=== PATIENT | female | born 1960 | race Caucasian/White ===

== ENCOUNTER 2017-03-09 14:40 | Emergency (ER) | payer SELFPAY ==
--- NOTE | 2017-03-09 16:52 | RAD ---
EXAM DESCRIPTION: Knee,Right 2 or More Views CLINICAL HISTORY: sharp pain, pressure with weight bearing COMPARISON: None. IMPRESSION: 2 views of the right knee show diffuse osteopenia of the osseous structures. No acute fracture, focal bone destruction, or joint dislocation is seen. Soft tissues are unremarkable. Electronically signed by: Alonzo Torres MD 03/09/2017 4:52 PM CDT
[2017-03-09] MEDS ORDERED: predniSONE 20 MG TAB PO ONE (17:17)
--- NOTE | 2017-03-09 17:20 | ED.PDOC ---
History of Present Illness - General Chief Complaint: Lower Extremity Injury Time Seen by Provider: 03/09/17 14:46 Source: patient Exam Limitations: no limitations - History of Present Illness Initial Comments: the patient is a 56-year-old female presenting to the emergency room secondary to right lateral anterior knee pain. The pain has been present for 3- 4 days. It is worse with walking. It is not bad with standing still. It is tender to palpation. There are no palpable cords behind the knee. The tenderness to palpation is over thehamstring to the outer aspect. There is mild swelling over the area. Range of motion is preserved. The patient is neurovascularly intact. Occurred: last week Pain - Lower Extremity: moderate: Right Knee Method of Injury: unknown Improving Factors: immobilization Worsening Factors: movement Allergies/Adverse Reactions: Allergies NO KNOWN ALLERGY Allergy (Verified 11/08/16 21:54) Home Medications: Ambulatory Orders Metoprolol Tartrate [Lopressor] 25 mg PO BID #60 tab 05/15/15 Nitrofurantoin Monohydrate Mac [Macrobid] 100 mg PO BID #10 cap 11/09/16 Potassium Chloride [Micro-K] 10 meq PO QAM #10 cap 11/09/16 predniSONE [Prednisone] 20 mg PO DAILY #3 tab 03/09/17 Review of Systems - Review of Systems Constitutional: States: no symptoms reported EENTM: States: no symptoms reported Respiratory: States: no symptoms reported Cardiology: States: no symptoms reported Gastrointestinal/Abdominal: States: no symptoms reported Genitourinary: States: no symptoms reported Musculoskeletal: States: see HPI Skin: States: no symptoms reported Neurological: States: no symptoms reported All other Systems: No Change from Baseline Past Medical History (General) - Patient Medical History Hx Seizures: No Hx Stroke: No Hx Dementia: No Hx Asthma: No Hx of COPD: No Hx Cardiac Disorders: No Hx Congestive Heart Failure: No Hx Pacemaker: No Hx Hypertension: Yes Hx Thyroid Disease: No Hx Diabetes: Yes Hx Gastroesophageal Reflux: No Hx Renal Disease: No Hx Cancer: No Hx of HIV: No Hx Hepatitis C: No Hx MRSA: No - Vaccination History Hx Tetanus, Diphtheria Vaccination: No Hx Influenza Vaccination: No Hx Pneumococcal Vaccination: No - Social History Hx Tobacco Use: Yes Hx Alcohol Use: Yes Hx Substance Use: Yes Hx Substance Use Treatment: Yes Hx Depression: No Hx Physical Abuse: No Hx Emotional Abuse: No Hx Suspected Abuse: No - Female History Patient : No Family Medical History - Family History Mother Living Status: Still Living Hx Cardiac Disease: Yes Physical Exam - Physical Exam General Appearance: Alert, Comfortable, No apparent distress Eyes, Ears, Nose, Throat: PERRL/EOMI Neck: full range of motion Cardiovascular/Respiratory: normal peripheral pulses, no respiratory distress Thigh/Hip: normal inspection, non-tender, no evidence of injury, normal ROM Leg: normal inspection, non-tender, no evidence of injury, normal ROM Knee: normal ROM, pain - ee history of present illness, swelling, other Ankle: normal inspection, non-tender, no evidence of injury, normal ROM Foot: normal inspection, non-tender, no evidence of injury, normal ROM Neuro/Tendon: normal sensation, normal motor functions, normal tendon functions Mental Status: alert, oriented x 3 Progress - Progress Progress: 03/09/17 17:20 the patient is a 56-year-old female presenting to the emergency room secondary to right lateral hamstring tendinitis. The patient needs to do stretches for the hamstring and light exercises as well. She can take oral over -the-counter anti-inflammatory such as Aleve. She can use topical heat such as icy hot or Biofreeze she can also use the Flector patches that she has. She will be written for 3 days of oral prednisone. ER warnings were given. X-ray shows no evidence of fracture or dislocation. Departure - Departure Clinical Impression: Hamstring strain Qualifiers: Encounter type: initial encounter Laterality: right Qualified Code(s): S76.311A - Strain of muscle, fascia and tendon of the posterior muscle group at thigh level, right thigh, initial encounter Disposition: Discharge to Home or Self Care Condition: Fair Departure Forms: ED Discharge - Pt. Copy, Patient Portal Self Enrollment Instructions: Tendonitis (Alternative Therapy), DI for Tendinopathy Diet: regular diet Activity: increase activity as tolerated Prescriptions: predniSONE [Prednisone] 20 mg PO DAILY #3 tab Home Medications: Ambulatory Orders Metoprolol Tartrate [Lopressor] 25 mg PO BID #60 tab 05/15/15 Nitrofurantoin Monohydrate Mac [Macrobid] 100 mg PO BID #10 cap 11/09/16 Potassium Chloride [Micro-K] 10 meq PO QAM #10 cap 11/09/16 predniSONE [Prednisone] 20 mg PO DAILY #3 tab 03/09/17 Additional Instructions: the patient is a 56-year-old female presenting to the emergency room secondary to right lateral hamstring tendinitis. The patient needs to do stretches for the hamstring and light exercises as well. She can take oral over -the-counter anti-inflammatory such as Aleve. She can use topical heat such as icy hot or Biofreeze she can also use the Flector patches that she has. She will be written for 3 days of oral prednisone. ER warnings were given. X-ray shows no evidence of fracture or dislocation.
[2017-03-10 08:20] VITALS: O2SAT 97
[2017-03-10 08:32] VITALS: TEMP 98
== END 2017-03-09 17:30 | disposition home or self-care (01) ==
LOC: ER 14:40
DX: S76.311A Strain of muscle, fascia and tendon of the posterior muscle group at thigh level, right thigh, initial encounter (principal); I10 Essential (primary) hypertension; E11.9 Type 2 diabetes mellitus without complications; Z87.891 Personal history of nicotine dependence; X58.XXXA Exposure to other specified factors, initial encounter

== ENCOUNTER → 2017-05-03 | Outpatient (CLI) | payer SELFPAY ==
--- NOTE | 2017-05-04 14:31 | RAD ---
EXAM DESCRIPTION: Abdomen 1 View CLINICAL HISTORY: 56 years Female, KIDNEY STONE. R10.821 COMPARISON: None. FINDINGS: Is a moderate amount of colonic stool and gas without evidence of obstruction. No left or right-sided renal calculus is seen. There are a few tiny calcifications in the left side of the pelvis which could represent either phleboliths or distal left ureteral calculus. Postoperative changes are noted in the left upper quadrant. IMPRESSION: Left-sided phleboliths versus distal left ureteral calculus. If clinically suspicious, noncontrast CT is recommended. Electronically signed by: Erwin Chao MD 05/04/2017 2:31 PM CDT Workstation: [id number]
== END | disposition home or self-care (01) ==
LOC: RAD 16:30
PROVIDERS: ATTEND Nurse Practitioner Family
DX: R10.829 Rebound abdominal tenderness, unspecified site (principal)

== ENCOUNTER 2017-12-18 10:51 | Emergency (ER) | payer SELFPAY ==
[2017-12-18 11:02] VITALS: TEMP 98.2
--- NOTE | 2017-12-18 11:16 | ED.PDOC ---
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 Timing/Duration: 1-3 hours Severity: moderate Activities at Onset: rest Prior Chest Pain/Cardiac Workup: no prior chest pain Improving Factors: nothing Worsening Factors: nothing Nitro Today/Relief: 0.4 mg x 1, provided by ED Aspirin Treatment Today: 81 mg x 4 Associated Symptoms: shortness of breath Allergies/Adverse Reactions: Allergies NO KNOWN ALLERGY Allergy (Verified 12/18/17 11:02) Home Medications: Ambulatory Orders Escitalopram Oxalate [Lexapro] 20 mg PO DAILY 12/18/17 Review of Systems - Review of Systems Constitutional: States: no symptoms reported EENTM: States: no symptoms reported Respiratory: States: see HPI, short of breath Cardiology: States: see HPI, other - chest heaviness Gastrointestinal/Abdominal: States: no symptoms reported Genitourinary: States: no symptoms reported Musculoskeletal: States: no symptoms reported Skin: States: no symptoms reported Neurological: States: no symptoms reported Endocrine: States: no symptoms reported All other Systems: Reviewed and Negative, No Change from Baseline Past Medical History (General) - Patient Medical History Hx Seizures: No Hx Stroke: No Hx Dementia: No Hx Asthma: No Hx of COPD: No Hx Cardiac Disorders: No Hx Congestive Heart Failure: No Hx Pacemaker: No Hx Hypertension: Yes Hx Thyroid Disease: No Hx Diabetes: No Hx Gastroesophageal Reflux: No Hx Renal Disease: No Hx Cancer: No Hx of HIV: No Hx Hepatitis C: No Hx MRSA: No Surgical History: cholecystectomy, gastric bypass, tonsillectomy - Vaccination History Hx Tetanus, Diphtheria Vaccination: No Hx Influenza Vaccination: No Hx Pneumococcal Vaccination: No - Social History Hx Tobacco Use: Yes Hx Alcohol Use: Yes Hx Substance Use: Yes Hx Substance Use Treatment: Yes Hx Depression: No Hx Physical Abuse: No Hx Emotional Abuse: No Hx Suspected Abuse: No - Female History Patient : No Family Medical History - Family History Mother Living Status: Still Living Hx Cardiac Disease: Yes Hx Family Cancer: Yes - mesothelioma-dad Physical Exam - Physical Exam General Appearance: Alert, Anxious, Comfortable, No apparent distress Eyes, Ears, Nose, Throat Exam: PERRL/EOMI, normal ENT inspection, TMs normal Neck: non-tender, full range of motion, supple Respiratory: chest non-tender, lungs clear, normal breath sounds Cardiovascular/Chest: normal peripheral pulses, regular rate, rhythm, no murmur Peripheral Pulses: radial,right: 2+, radial,left: 2+ Gastrointestinal/Abdominal: normal bowel sounds, non tender, soft, no organomegaly Neurologic: alert, oriented x 3 Skin Exam: normal color, warm/dry Progress - Progress Progress: 12/18/17 11:27 Last Vital Signs Temp 98.2 F 12/18/17 10:58 Pulse 118 H 12/18/17 10:58 Resp 28 H 12/18/17 10:58 BP 171/149 12/18/17 10:58 Pulse Ox 97 12/18/17 10:58 - Results/Orders Results/Orders: Laboratory Tests 12/18/17 12/18/17 12/18/17 11:18 11:23 11:23 WBC 15.6 H RBC 5.54 H Hgb 17.0 H Hct 51.5 H MCV 92.9 MCH 30.6 MCHC 33.0 RDW 14.1 Plt Count 358 MPV 7.7 Absolute Neuts (auto) 11.00 H Absolute Lymphs (auto) 3.20 Absolute Monos (auto) 1.20 H Absolute Eos (auto) 0.00 Absolute Basos (auto) 0.10 Neutrophils % 70.5 Lymphocytes % 20.5 Monocytes % 7.9 Eosinophils % 0.2 L Basophils % 0.9 PT 11.4 INR 1.010 PTT (SP) 31.7 D-Dimer, Quantitative < 200 Sodium 134 L Potassium 4.1 Chloride 99 L Carbon Dioxide 12 L* Anion Gap 27.1 H BUN 15 Creatinine 0.82 BUN/Creatinine Ratio 18.3 Random Glucose 130 H Serum Osmolality 270.8 L Calcium 9.5 Magnesium 2.0 Total Bilirubin 0.9 Direct Bilirubin 0.2 Indirect Bilirubin 0.7 AST 32 ALT 30 Alkaline Phosphatase 88 Creatine Kinase 151 H CK-MB (CK-2) 6.2 H* CK-MB (CK-2) % 4.11 Troponin I < 0.02 B-Natriuretic Peptide 15.4 Serum Total Protein 8.6 H Albumin 5.0 Urine Color Urine Appearance Urine pH Ur Specific Stanton Urine Protein Urine Glucose (UA) Urine Ketones Urine Blood Urine Nitrite Urine Bilirubin Urine Urobilinogen Ur Leukocyte Esterase Urine RBC Urine WBC Ur Epithelial Cells Urine Bacteria Urine Opiates Screen Negative Urine Barbiturates Negative Ur Phencyclidine Scrn Negative U Amphetamin/Meth Scrn Negative U Benzodiazepines Scrn Negative U Cocaine Metab Screen Negative U Cannabinoids Screen Negative Ethyl Alcohol 12/18/17 12/18/17 11:23 11:54 WBC RBC Hgb Hct MCV MCH MCHC RDW Plt Count MPV Absolute Neuts (auto) Absolute Lymphs (auto) Absolute Monos (auto) Absolute Eos (auto) Absolute Basos (auto) Neutrophils % Lymphocytes % Monocytes % Eosinophils % Basophils % PT INR PTT (SP) D-Dimer, Quantitative Sodium Potassium Chloride Carbon Dioxide Anion Gap BUN Creatinine BUN/Creatinine Ratio Random Glucose Serum Osmolality Calcium Magnesium Total Bilirubin Direct Bilirubin Indirect Bilirubin AST ALT Alkaline Phosphatase Creatine Kinase CK-MB (CK-2) CK-MB (CK-2) % Troponin I B-Natriuretic Peptide Serum Total Protein Albumin Urine Color Yellow Urine Appearance Clear Urine pH 5.5 Ur Specific Stanton >= 1.030 Urine Protein 100 H Urine Glucose (UA) Negative Urine Ketones >=160 Urine Blood Small H Urine Nitrite Negative Urine Bilirubin Negative Urine Urobilinogen 0.2 Ur Leukocyte Esterase Negative Urine RBC 0 Urine WBC 0-1 Ur Epithelial Cells 3-5 Urine Bacteria Rare Urine Opiates Screen Urine Barbiturates Ur Phencyclidine Scrn U Amphetamin/Meth Scrn U Benzodiazepines Scrn U Cocaine Metab Screen U Cannabinoids Screen Ethyl Alcohol 40.40 - EKG/XRAY/CT EKG: Sinus, Tachy Comments: heart rate-114;biatrial enlargement Departure - Departure Clinical Impression: Chest pain Qualifiers: Chest pain type: unspecified Qualified Code(s): R07.9 - Chest pain, unspecified Time of Disposition: 13:32 Disposition: Left Against Medical Advice Departure Forms: ED Discharge - Pt. Copy, Patient Portal Self Enrollment Instructions: DI for Chest Pain Referrals: Vickie Brooks NP [Primary Care Provider] - 1-2 Weeks Home Medications: Ambulatory Orders Escitalopram Oxalate [Lexapro] 20 mg PO DAILY 12/18/17
[2017-12-18] MEDS ORDERED: ASPIRIN (CHEWABLE) 81 MG TAB PO ONE (11:18)
[2017-12-18] MEDS ORDERED: NITROGLYCERIN 0.4 MG 25 EA TAB SL ONE (11:18)
--- NOTE | 2017-12-18 12:38 | RAD ---
EXAM DESCRIPTION: Chest,1 View CLINICAL HISTORY: Chest pain COMPARISON: November 08, 2016 Findings: Single upright portable frontal view of the chest. Cardiac silhouette and pulmonary vascularity are within normal limits. Calcific atherosclerosis noted of the aortic arch. Lungs are clear without focal consolidative infiltrates. Bilateral costophrenic angles are sharp. No pneumothorax. Dextrocurvature of the thoracic spine, stable. Impression: No radiographic evidence for acute cardiopulmonary process. Electronically signed by: Santhosh Ferrell MD 12/18/2017 12:37 PM [facility]
[2017-12-18] MEDS ORDERED: LABETALOL INJ 5 MG/ML VIAL IV ONE (13:14)
[2017-12-18 13:41] VITALS: BP 182/114; O2SAT 96
== END 2017-12-18 13:33 | disposition left against medical advice (07) ==
LOC: ER 10:51
DX: R07.9 Chest pain, unspecified (principal); I10 Essential (primary) hypertension; I51.7 Cardiomegaly

== ENCOUNTER 2017-12-18 15:27 | Emergency (ER) | payer SELFPAY ==
[2017-12-18 16:03] VITALS: TEMP 98.3
--- NOTE | 2017-12-18 16:52 | ED.PDOC ---
History of Present Illness - General Chief Complaint: Cardiovascular Problem Stated Complaint: Elevated BP and headache Time Seen by Provider: 12/18/17 16:27 Source: patient Exam Limitations: no limitations - History of Present Illness Initial Comments: Lisa Jimenez 57 y/o female was seen here initially this am for SOB and irri tability with etoh -level:40.40 came brought back by mom with increasing irritability and high blood pressure.Stated had been heavily drinking since this weekend and last drink was yesterday.Admits daily alcoholic use the last 3 years.Had been in ETOH detox and AA meetings in the past. Timing/Duration: 4-6 hours Severity: moderate Improving Factors: nothing Worsening Factors: nothing Associated Symptoms: other - shaky Allergies/Adverse Reactions: Allergies NO KNOWN ALLERGY Allergy (Verified 12/18/17 16:03) Home Medications: Ambulatory Orders Clonidine HCl 0.1 mg TD DAILY #30 tablet 12/18/17 Escitalopram Oxalate [Lexapro] 20 mg PO DAILY 12/18/17 Folate-Vitamin F49-Zapvayowa F [Intrinsi B12/Folate 800-500-20 Mcg-Mcg-mg] 1 tab PO DAILY #30 tab 12/18/17 Thiamine HCl [Thiamine] 100 mg PO DAILY #30 cap 12/18/17 Review of Systems - Review of Systems Constitutional: States: no symptoms reported EENTM: States: no symptoms reported Respiratory: States: no symptoms reported Cardiology: States: no symptoms reported Gastrointestinal/Abdominal: States: no symptoms reported Genitourinary: States: no symptoms reported Musculoskeletal: States: no symptoms reported Skin: States: no symptoms reported Neurological: States: see HPI, emotional problems Past Medical History (General) - Patient Medical History Hx Seizures: No Hx Stroke: No Hx Dementia: No Hx Asthma: No Hx of COPD: No Hx Cardiac Disorders: No Hx Congestive Heart Failure: No Hx Pacemaker: No Hx Hypertension: Yes Hx Thyroid Disease: No Hx Diabetes: No Hx Gastroesophageal Reflux: No Hx Renal Disease: No Hx Cancer: No Hx of HIV: No Hx Hepatitis C: No Hx MRSA: No Hx Other PMH: Yes - alcoholism and depression Surgical History: gastric bypass, other - hysterectomy - Vaccination History Hx Tetanus, Diphtheria Vaccination: No Hx Influenza Vaccination: No Hx Pneumococcal Vaccination: No - Social History Hx Tobacco Use: Yes Hx Alcohol Use: Yes Hx Substance Use: Yes Hx Substance Use Treatment: Yes Hx Depression: No Hx Physical Abuse: No Hx Emotional Abuse: No Hx Suspected Abuse: No - Female History Patient : No Family Medical History - Family History Mother Living Status: Still Living Hx Cardiac Disease: Yes Hx Family Cancer: Yes - mesothelioma-dad Physical Exam - Physical Exam General Appearance: Alert, Anxious, No apparent distress Eye Exam: bilateral normal Ears, Nose, Throat: hearing grossly normal, normal ENT inspection, normal pharynx Neck: non-tender, full range of motion, supple Respiratory: chest non-tender, lungs clear, normal breath sounds Cardiovascular/Chest: normal peripheral pulses, regular rate, rhythm, no murmur Peripheral Pulses: radial,right: 2+, radial,left: 2+ Gastrointestinal/Abdominal: normal bowel sounds, non tender, soft, no organomegaly Extremity: normal range of motion, non-tender Neurologic: alert, normal mood/affect, oriented x 3 Progress - Progress Progress: 12/18/17 17:06 Drug screen-negative;cardiac enzymes -normal ;[id number] but no left shift ETOH- 40.40 12/18/17 20:14 Patient will go home with her mother;Has regular [facility] follow up - EKG/XRAY/CT EKG: Sinus, Tachy Comments: heart rate 114-done this am;biatrial enlargement Departure - Departure Clinical Impression: History of depression Alcohol withdrawal Qualifiers: Complication of substance-induced condition: with unspecified complication Qualified Code(s): F10.239 - Alcohol dependence with withdrawal, unspecified Hypertension Qualifiers: Hypertension type: other secondary hypertension Qualified Code(s): I15.8 - Other secondary hypertension Alcoholism with alcohol dependence Qualifiers: Substance use status: alcohol-induced sleep disorder Qualified Code(s): F10.282 - Alcohol dependence with alcohol-induced sleep disorder Time of Disposition: 20:14 Disposition: Discharge to Home or Self Care Condition: Fair Departure Forms: ED Discharge - Pt. Copy, Patient Portal Self Enrollment Instructions: DI for Alcohol Abuse and Alcoholism, Alcohol Abuse and Alcoholism , Alcoholism (Alternative Therapy) Referrals: Vickie Brooks NP [Primary Care Provider] - 1-2 Weeks Prescriptions: Clonidine HCl 0.1 mg TD DAILY #30 tablet Folate-Vitamin N15-Kzldqtcew F [Intrinsi B12/Folate 800-500-20 Mcg-Mcg-mg] 1 tab PO DAILY #30 tab Thiamine HCl [Thiamine] 100 mg PO DAILY #30 cap Home Medications: Ambulatory Orders Clonidine HCl 0.1 mg TD DAILY #30 tablet 12/18/17 Escitalopram Oxalate [Lexapro] 20 mg PO DAILY 12/18/17 Folate-Vitamin W11-Ebnvfizbv F [Intrinsi B12/Folate 800-500-20 Mcg-Mcg-mg] 1 tab PO DAILY #30 tab 12/18/17 Thiamine HCl [Thiamine] 100 mg PO DAILY #30 cap 12/18/17 Additional Instructions: Librium 25 mg tapering dose;Follow up with primary Md 12/19 2017
[2017-12-18] MEDS ORDERED: MULTIPLE VITAMIN INJ 10 ML in SODIUM CHLORIDE 0.9% 1000ML 1,000 ML IVPB ONE (16:54)
[2017-12-18] MEDS ORDERED: MULTIPLE VITAMIN INJ 10 ML, THIAMINE HCL INJ 100 MG in SODIUM CHLORIDE 0.9% 1000ML 1,00... IVPB ONE (16:56)
[2017-12-18] MEDS ORDERED: chlordiazePOXIDE HCL 25 MG CAP PO ONE (16:57)
[2017-12-18] MEDS ORDERED: cloNIDine HCL 0.1 MG TAB PO ONE (16:57)
[2017-12-18] MEDS ORDERED: MAGNESIUM SULFATE PREMIX 2GM 2 GM in PREMIX BAG 1 BAG IVPB ONE (16:58)
[2017-12-18] MEDS ORDERED: FOLIC ACID 1 MG TAB PO SCH (17:00)
[2017-12-18] MEDS ORDERED: MAGNESIUM SULFATE PREMIX 2GM 0 ML IVPB ONE (17:16)
[2017-12-18] MEDS ORDERED: SODIUM CHLORIDE 0.9% 1000ML 1,000 ML ONE (17:16)
[2017-12-18] MEDS ORDERED: MULTIPLE VITAMIN 10 ML VIAL ONE (17:17)
[2017-12-18] MEDS ORDERED: THIAMINE HCL INJ 100 MG/ML VIAL ONE (17:32)
[2017-12-18 17:46] VITALS: O2SAT 95
[2017-12-18 21:25] VITALS: BP 143/54
== END 2017-12-18 21:10 | disposition home or self-care (01) ==
LOC: ER 15:27
DX: F10.282 Alcohol dependence with alcohol-induced sleep disorder (principal); F10.239 Alcohol dependence with withdrawal, unspecified; I15.8 Other secondary hypertension
CPT/HCPCS: J3411; J7030

== ENCOUNTER → 2018-02-21 | Outpatient (CLI) | payer OTHER | LOC: YCFC.O 12:35 | DX: I10 Essential (primary) hypertension (principal) ==

== ENCOUNTER 2018-04-29 14:13 | Emergency (ER) | payer SELFPAY ==
[2018-04-29 14:33] VITALS: TEMP 99.1
--- NOTE | 2018-04-29 15:30 | RAD ---
EXAM DESCRIPTION: Chest,1 View CLINICAL HISTORY: SYNCOPE COMPARISON: December 18, 2017 IMPRESSION: Single AP portable upright view of the chest shows cardiac silhouette and pulmonary vasculature to be within normal limits. Lungs are normally aerated and clear. No obvious pleural effusion or pneumothorax is seen. Moderate dextrocurvature of the lower thoracic spine is seen. Electronically signed by: Alonzo Torres MD 04/29/2018 3:29 PM CDT
--- NOTE | 2018-04-29 15:33 | CT ---
EXAM DESCRIPTION: Head CLINICAL HISTORY: SYNCOPE COMPARISON: November 08, 2016 TECHNIQUE: Noncontrast transaxial CT images of the head are obtained from base to vertex. This exam was performed according to our departmental dose-optimization program, which includes automated exposure control, adjustment of the mA and/or kV according to patient size and/or use of iterative reconstruction technique. FINDINGS: The midline structures are not displaced. The sulci are age appropriate. The lateral, third, and fourth ventricles are normal in size, shape, and anatomic positioning. There is no evidence of mass, mass effect, hydrocephalus, or acute intracranial hemorrhage. No abnormal extra axial fluid collections are seen. Normal pereira-white differentiation is seen. The visualized bone windows show no depressed skull fracture or significant abnormality. There is a moderate right frontal scalp soft tissue hematoma showing increased attenuation measuring 1.4 cm AP by 4.3 cm transverse. The visualized paranasal sinuses and mastoid air cells are clear. IMPRESSION: 1. No acute cranial abnormality is seen on noncontrast CT of the head. 2. Large right frontal scalp soft tissue hematoma is a supraorbital region is seen. Electronically signed by: Alonzo Torres MD 04/29/2018 3:32 PM CDT
--- NOTE | 2018-04-29 15:36 | CT ---
EXAM DESCRIPTION: Cervical Spine CLINICAL HISTORY: SYNCOPE COMPARISON: None available. TECHNIQUE: Axial noncontast CT of the cervical spine with coronal and sagittal reformats. This exam was performed according to our departmental dose-optimization program, which includes automated exposure control, adjustment of the mA and/or kV according to patient size and/or use of iterative reconstruction technique. FINDINGS: Cervical vertebral body heights are maintained. There is straightening of the normal cervical lordosis. No acute fracture or posttraumatic positional abnormality of the cervical spine is seen. No high-grade spinal canal stenosis or significant foraminal encroachment is seen. Soft tissues of the neck are unremarkable. There is medial positioning of the common and internal carotid arteries with mild calcifications of the left common carotid artery and moderate calcifications of the bilateral carotid bulb. No pathologically enlarged lymphadenopathy seen. Visualized lung apices show moderate emphysematous changes The C1-2 relationship is maintained. IMPRESSION: No CT evidence of acute fracture or posterior neck positional abnormality of the cervical spine is seen. Nonspecific straightening of the normal cervical lordosis could be secondary to patient positioning or muscle spasm. Mild/moderate carotid artery calcifications are seen asymmetric on the right. Electronically signed by: Alonzo Torres MD 04/29/2018 3:35 PM CDT
--- NOTE | 2018-04-29 16:15 | ED.PDOC ---
History of Present Illness - General Chief Complaint: Syncope/Near Syncope Stated Complaint: syncope Time Seen by Provider: 04/29/18 14:47 Source: patient, family Exam Limitations: no limitations Additional Information: PT WAS SHOPPING WITH HER MOM WHEN SHE FOUND HER LAYING IN THE FLOOR AT THE [facility]OPPING CENTER. PT WAS UNCONSCIOUS AT THAT TIME. PT HAS HX OF ETOH ABUSE AND WAS DRINKING HEAVILY 5 DAYS AGO. SPENT SOME TIME IN [facility] AND ACCORDING TO PT AND MOM SHE HAS NOT BEEN DRINKING SINCE. PT DOES STATE SHE LOST HER JOB AND HAS BEEN DRINKING MOUTHWASH. - History of Present Illness Timing/Duration: unsure Severity: moderate Improving Factors: nothing, other - PT IMPROVED BY THE TIME SHE ARRIVED AT ED. Worsening Factors: nothing Associated Symptoms: other - FELT DIZZY JUST PRIOR. Allergies/Adverse Reactions: Allergies NO KNOWN ALLERGY Allergy (Verified 04/29/18 14:33) Home Medications: Ambulatory Orders Clonidine HCl 0.1 mg TD DAILY #30 tablet 12/18/17 Escitalopram Oxalate [Lexapro] 20 mg PO DAILY 12/18/17 Folate-Vitamin [id number] F [Intrinsi B12/Folate 800-500-20 Mcg-Mcg-mg] 1 tab PO DAILY #30 tab 12/18/17 Thiamine HCl [Thiamine] 100 mg PO DAILY #30 cap 12/18/17 Doxycycline (Monohydrate) [Doxycycline Monohydrate] 100 mg PO BID #20 cap Review of Systems - Review of Systems Constitutional: Denies: chills, fever EENTM: States: no symptoms reported Respiratory: States: no symptoms reported Cardiology: States: no symptoms reported Gastrointestinal/Abdominal: States: no symptoms reported Genitourinary: States: no symptoms reported, other - NO INCONTINENCE. Musculoskeletal: States: no symptoms reported Skin: States: other - SWELLING AND ECCHYMOSIS Neurological: States: headache. Denies: numbness, seizure, weakness Endocrine: States: no symptoms reported Hematologic/Lymphatic: States: no symptoms reported Past Medical History (General) - Patient Medical History Hx Seizures: No Hx Stroke: No Hx Dementia: No Hx Asthma: No Hx of COPD: No Hx Cardiac Disorders: No Hx Congestive Heart Failure: No Hx Pacemaker: No Hx Hypertension: Yes Hx Thyroid Disease: No Hx Diabetes: No Hx Gastroesophageal Reflux: No Hx Renal Disease: No Hx Cancer: No Hx of HIV: No Hx Hepatitis C: No Hx MRSA: No Surgical History: tonsillectomy, other - Vaccination History Hx Tetanus, Diphtheria Vaccination: No Hx Influenza Vaccination: No Hx Pneumococcal Vaccination: No - Social History Hx Tobacco Use: Yes Hx Alcohol Use: Yes Hx Substance Use: Yes Hx Substance Use Treatment: Yes Hx Depression: No Hx Physical Abuse: No Hx Emotional Abuse: No Hx Suspected Abuse: No - Female History Patient : No Family Medical History - Family History Mother Living Status: Still Living Hx Cardiac Disease: Yes Hx Family Cancer: Yes - mesothelioma-dad Physical Exam - Physical Exam General Appearance: No apparent distress, Obese, Other - APPEARS INTOXICATED Eye Exam: bilateral normal Ears, Nose, Throat: hearing grossly normal, normal ENT inspection, other - HEMATOMA OVER R LAT SUP PERIORBITAL RIDGE. EYE IS NL, PUPIL NL, CORNEA CLEAR, Neck: non-tender, full range of motion, normal inspection Respiratory: lungs clear, normal breath sounds, no respiratory distress Cardiovascular/Chest: regular rate, rhythm, no murmur Gastrointestinal/Abdominal: normal bowel sounds, non tender, soft, no organomegaly Back Exam: normal inspection, no CVA tenderness Extremity: normal range of motion, non-tender, normal inspection Neurologic: no motor/sensory deficits, alert, normal mood/affect, other - SMELLS OF MOUTHWASH AND ACTS INTOXICATED Skin Exam: normal color, warm/dry, other - SWELLING AND ECCHYMOSIS PREVIOUSLY NOTED. Lymphatic: no adenopathy Progress - Progress Progress: 04/29/18 16:41 FEELS BETTER. - EKG/XRAY/CT EKG: Sinus - RATE 84, NL AXIS, NL INTERVALS, , nonspecific ST T wave Chg - NAIP , , Unchanged from - 12/18/2017 XRAY: chest - SMALL LL INFILTRATE CT: HEAD/CSPINE NEG PER RADIOLOGY Departure - Departure Clinical Impression: Chronic alcohol abuse, Hypokalemia, Dehydration Pneumonia Qualifiers: Pneumonia type: due to unspecified organism Laterality: left Lung location: lower lobe of lung Qualified Code(s): J18.1 - Lobar pneumonia, unspecified organism Time of Disposition: 16:45 Disposition: Discharge to Home or Self Care Condition: Good Departure Forms: ED Discharge - Pt. Copy, Patient Portal Self Enrollment Instructions: Pneumonia-Adult, Alcohol Abuse and Alcoholism Referrals: Vickie Brooks NP [Primary Care Provider] - 1-2 Weeks Prescriptions: Doxycycline (Monohydrate) [Doxycycline Monohydrate] 100 mg PO BID #20 cap Home Medications: Ambulatory Orders Clonidine HCl 0.1 mg TD DAILY #30 tablet 12/18/17 Escitalopram Oxalate [Lexapro] 20 mg PO DAILY 12/18/17 Folate-Vitamin R72-[id number] F [Intrinsi B12/Folate 800-500-20 Mcg-Mcg-mg] 1 tab PO DAILY #30 tab 12/18/17 Thiamine HCl [Thiamine] 100 mg PO DAILY #30 cap 12/18/17 Doxycycline (Monohydrate) [Doxycycline Monohydrate] 100 mg PO BID #20 cap 18
[2018-04-29] MEDS ORDERED: SODIUM CHLORIDE 0.9% 1000ML 2,000 ML IVS ONE (16:29)
[2018-04-29] MEDS ORDERED: cefTRIAXone SODIUM 1 GM in SODIUM CHL 0.9% 50ML MIN-BAG+ 50 ML IVPB ONE (16:42)
[2018-04-29] MEDS ORDERED: cefTRIAXone SODIUM 1 GM VIAL ONE (16:48)
[2018-04-29] MEDS ORDERED: SODIUM CHL 0.9% 50ML MIN-BAG+ 50 ML IVPB ONE (16:49)
[2018-04-29] MEDS ORDERED: POTASSIUM CHLORIDE 20 MEQ TAB PO ONE (17:00)
[2018-04-29 18:18] VITALS: BP 113/54; O2SAT 96
== END 2018-04-29 18:17 | disposition home or self-care (01) ==
LOC: ER 14:13
DX: J18.1 Lobar pneumonia, unspecified organism (principal); E86.0 Dehydration; E87.6 Hypokalemia; F10.10 Alcohol abuse, uncomplicated; R51 Headache; R55 Syncope and collapse; I10 Essential (primary) hypertension; Z87.891 Personal history of nicotine dependence
CPT/HCPCS: 70450; 71045; 72125; 80053; 80307; 80320; 81001; 85025; 85610; 85730; 93005; J0696; J7030; J7050

== ENCOUNTER → 2018-08-21 | Outpatient (CLI) | payer SELFPAY ==
--- NOTE | 2018-08-22 15:37 | CT ---
EXAM DESCRIPTION: Maxillofacial w/wo Contrast CLINICAL HISTORY: 57 years Female, HEMORRHAGE OF UNSPECIFIED ORBIT COMPARISON: None. TECHNIQUE: Pre and postcontrast multidetector CT imaging of the maxillofacial structures was performed with attention to the orbits. Multiplanar reconstructions were generated. This exam was performed according to our departmental dose-optimization program which includes automated exposure control, adjustment of the mA and/or kV according to patient size and/or use of iterative reconstruction technique. FINDINGS: Mild cutaneous and subcutaneous stranding is seen in around the superficial orbital structures and more apparent on the right. No post septal inflammation is present. The bilateral globes are symmetric. Intraconal and extraconal spaces are normal. The orbital musculature is intact. The bilateral optic nerves are normal in appearance. No drainable fluid collections are demonstrated within the face. No paraspinous air-fluid levels or sinus fractures. Bilateral temporomandibular joints are maintained. Poor dentition is noted. Visualized intracranial structures are grossly unremarkable. No abnormal postcontrast enhancement is demonstrated throughout the maxillofacial structures. IMPRESSION: Unremarkable CT of the orbits. Electronically signed by: John Alcala MD 08/22/2018 3:35 PM CDT
== END ==
LOC: LAB.O 16:23
PROVIDERS: ATTEND Family Medicine
DX: H05.239 Hemorrhage of unspecified orbit (principal); M54.9 Dorsalgia, unspecified; I10 Essential (primary) hypertension

== ENCOUNTER → 2018-08-23 | Outpatient (CLI) | payer SELFPAY ==
--- NOTE | 2018-08-23 17:54 | MRI ---
EXAM DESCRIPTION: Thoracic Spine w/o Contrast: Magnetic Resonance Imaging. CLINICAL HISTORY: CHRONIC BACK PAIN COMPARISON: CT scan of the cervical spine 04/29/2018. TECHNIQUE: Multiplanar, multiple standard sequences, non contrast MRI, thoracic spine. FINDINGS: Anterior compression type vertebral body fracture at T6. Inversion recovery shows increased signal in the marrow of the mid and posterior aspect of the fracture which is also extending into the bilateral pedicles. Anterior height of the T6 vertebral body is 4.5 mm compared to 1.5 cm at T5. This indicates approximately 70% loss of height. Approximately 2 mm retropulsion of the mid vertebral body which is abutting the ventral cord. No cord edema or compression. Paravertebral soft tissue mass anteriorly and more to the right than left. C5-6 disc and C6-7 disc are unremarkable. No significant foraminal stenosis at either level. Minimal disc space loss at T8-9 and T9-10 and minimal desiccation signal. There may be minimal desiccation in the C5-6 and C6-7 discs. No cord compression at other levels. Remaining discs demonstrate normal signal. Disc spaces are preserved. Canal and foramina are patent. No scoliosis. Facet joints are unremarkable. Conus terminates at L1. Other paravertebral soft tissues are unremarkable. Normal marrow signal in the remaining vertebral bodies and the posterior elements. Vertebral bodies are not compressed at other levels. IMPRESSION: 1. Subacute compression type vertebral body fracture of C6 with approximately 70% loss of height anterior. Marrow edema extends into the bilateral C6 pedicles but posterior elements are stable. Minimal paravertebral hematoma/soft tissue swelling. 2 mm retropulsion of the mid posterior vertebral body abutting the ventral cord. No cord edema or cord compression. No canal stenosis. Discs superior and inferior are unremarkable and foramina are patent bilaterally 2. Minimal desiccation at T8-9 and T9-T10 discs. Also C5-6 and C6-7 discs.. Electronically signed by: Anatoliy Ponce MD 08/23/2018 5:53 PM CDT
== END ==
LOC: MRI 13:00
PROVIDERS: ATTEND Family Medicine
DX: M48.52XA Collapsed vertebra, not elsewhere classified, cervical region, initial encounter for fracture (principal)

== ENCOUNTER → 2018-09-13 | Outpatient (CLI) | payer SELFPAY ==
--- NOTE | 2018-09-14 13:24 | CT ---
Procedure: CT LUNG SCREENING Exam Date: 09/13/2018. Ordering Provider: Galdino Kaiser Clinical Indication: HISTORY OF NICOTINE DEPENDENCE. Quit smoking 10 days ago. This patient meets eligibility criteria for low-dose CT lung cancer screening. Comparison: None. Technique: Using a multislice scanner, sequential helical axial imaging was obtained in the thorax, 2.5 mm thickness, 2.5 mm separation, from the level of the thoracic inlet through the lung bases without IV contrast. A low dose protocol was utilized: CTDI: 1.75 mGy. 120. kVp. 45 mA. 2D sagittal and coronal reconstructed images, 6.0 mm thickness, were obtained. This exam was performed according to our departmental dose optimization program which includes use of automated exposure control, adjustment of the mA and/or kV according to patient size and/or use of iterative reconstruction technique. Nodule measurements under 10 mm are given as mean value of 3 axes diameters. FINDINGS: Lungs and large airways: Bilateral upper lobes demonstrating dilating airspaces symmetrically. 4 mm solid nodule in the subpleural inferior lingula on axial sequence 2, image 75. Scarring in the inferior lingula. Bibasilar atelectasis in the posterior recesses of the lower lobes bilaterally. No abnormal nodules masses or consolidating infiltrates. Pleura: No significant pleural thickening or effusion. No pneumothorax. Mediastinum and magy: evaluation limited by low dose technique and lack of IV contrast. Nodular density anterior to the ascending aorta almost to the level of the arch. No large soft tissue mass or significantly enlarged lymph nodes. Heart and great vessels: Atherosclerotic calcification in the proximal brachiocephalic vessels aortic arch and minimal calcification in the descending thoracic aorta. Multiple calcifications in the coronary arteries. Possible stents in the right coronary artery. Chest wall, lower neck, axillae: Evaluation also limited by same factors as described above. No dominant soft tissue masses or enlarged lymph nodes. Upper abdomen: No free air or fluid in the included peritoneal. Prior gastric surgery. Included adrenal glands and spleen with normal echogenicity. Atherosclerotic calcifications in the included abdomen aorta. Osseous structures: Evaluation limited by low dose MIP technique. Greater than 50% compression of the mid T6 vertebral body. Minimal retropulsion superior endplate and posterior superior body. No significant canal or foraminal stenosis. Significant foraminal narrowing on the left at T9. Facet degeneration at some levels. No blastic or lytic lesions. IMPRESSION: 1. Minimal emphysematous changes in the lungs bilaterally. 4 mm solid nodule left lingula. No pleural effusion or pneumothorax. No abnormal solid nodule consolidating infiltrate, or mass.. Recommendation of 12 month low-dose screening chest CT examination, based upon [facility] Best Practice guidelines and Lung Rads parameters. Please see below for Lung RADS category and FOLLOW-UP.* 2. Greater than 50% compression type vertebral body fracture at T6. Please correlate with prior radiographs and clinical history. *Lung RADS category Category 2 - Nodules with a very low likelihood (less than 1%) of becoming a clinically active cancer due to size or lack of growth. Nodules: Solid or part solid nodule(s) less than 6mm, new solid nodule less than 4mm. Ground glass nodule(s) less than 20mm or unchanged or slow growing ground glass nodule 20mm or greater. Cat 3 or 4 nodule unchanged for 3 or more months. Follow-up: Continue annual screening with a Low Dose Chest CT in 12 months for re-evaluation. Electronically signed by: Anatoliy Ponce MD 09/14/2018 1:23 PM CDT
== END ==
LOC: CT 13:30
PROVIDERS: ATTEND Family Medicine
DX: Z87.891 Personal history of nicotine dependence (principal)

== ENCOUNTER → 2019-10-15 | Outpatient (CLI) | payer OTHER ==
--- NOTE | 2019-10-16 15:34 | CT ---
Procedure: CT LUNG SCREENING Exam Date: 10/15/2019. Ordering Provider: Galdino Kaiser Clinical Indication: PERSONAL HX OF TOBACCO USE . Current cigarette smoker. 40 pack years. This patient meets eligibility criteria for low-dose CT lung cancer screening. Comparison: Low-dose CT lung cancer screening examination 13 September 2018. Technique: Using a multislice scanner, sequential helical axial imaging was obtained in the thorax, 2.5 mm thickness, 2.5 mm separation, from the level of the thoracic inlet through the lung bases without IV contrast. A low dose protocol was utilized for BMI less than 30: BMI: 29.3. CTDI: 1.76 mGy. 120. kVp. 45 mA. DLP 58.94 mGy-cm. 2D sagittal and coronal reconstructed images, 6.0 mm thickness, were obtained. This exam was performed according to our departmental dose optimization program which includes use of automated exposure control, adjustment of the mA and/or kV according to patient size and/or use of iterative reconstruction technique. Nodule measurements under 10 mm are given as mean value of 3 axes diameters. FINDINGS: Lungs and large airways: The subpleural solid nodule in the inferior lingula is stable or decreased in size since the prior study, on axial image 2/72k. Pleural parenchymal scarring also noted. New calcification in the parenchyma of the medial posterior recess left lower lobe on axial image 2/102. Approximately 4.5 mm diameter. Parenchymal blebs again noted in a centrilobular pattern more numerous in the upper lung oneill compared to the lower lung oneill. Solitary bulla stable in the right lower lobe. Pleural parenchymal scarring in the right middle lobe. No new nodules and no masses. No focal infiltrates. Pleura and space: Stable calcification posterior left lower lobe pleura abutting the lower hemidiaphragm, on image 2/100.. Mediastinum and magy: evaluation limited by low dose technique and lack of IV contrast. Negative. Stable. Heart and great vessels: Atherosclerotic calcifications in the included brachiocephalic vessels aortic arch and descending thoracic aorta, as well as the coronary arteries. No change. Chest wall, lower neck, axillae: Evaluation also limited by same factors as described above. Negative and stable. Upper abdomen: Evaluation limited by low-dose technique. No free air or free fluid in the included peritoneal space. Surgical hardware on the stomach. Gallbladder partially visualized.. Osseous structures: Evaluation limited by low dose MIP technique. Stable 50% compression deformity T6. No change in foraminal stenosis at T9-T10. No new compression fractures. Minimal spondylosis. IMPRESSION: Stable nodule in the inferior lingula. New nodular calcification in the posterior recess of the left lower lobe. Emphysematous changes more in the upper lung oneill than the lower lung oneill.. [facility] Best Practice Recommendations: please see below for Lung RADS category and FOLLOW-UP.* *Lung RADS category CATEGORY 2- Nodules with a very low likelihood (less than 1%) of becoming a clinically active cancer due to size or lack of growth. Nodules: Perifissural nodule(s) < 10 mm. (526mm3). Solid or part solid nodule(s) less than 6mm (113.1 mm3), new solid nodule less than 4mm (33.5 mm3). Ground glass nodule(s) less than 30mm (07969.2 mm3) or unchanged or slow growing ground glass nodule 30mm or greater. Cat 3 or 4 nodule unchanged for 3 or more months. FOLLOW-UP: Continue annual screening with a Low Dose Chest CT in 12 months for re-evaluation. Electronically signed by: Anatoliy Ponce MD 10/16/2019 3:33 PM [facility]
== END ==
LOC: CT 15:30
PROVIDERS: ATTEND Family Medicine
DX: Z87.891 Personal history of nicotine dependence (principal); R91.8 Other nonspecific abnormal finding of lung field; J43.9 Emphysema, unspecified

== ENCOUNTER 2020-06-24 19:49 | Emergency (ER) | payer SELFPAY ==
--- NOTE | 2020-06-24 19:56 | ED.PDOC ---
History of Present Illness - General Time Seen by Provider: 06/24/20 19:52 - History of Present Illness Initial Comments: 59 yo F with a PMH HTN comes in with 30 minutes of right sided numbness and difficulty with speech. states she was on her way home from work when the symptoms started. Has happened prior 3 times before, but resolved in past. Denies hx cad, hx stroke or blood clot. Patient did note to nurse that she had used methamphetamines earlier today. Patient does smoke. Is complaint with bp meds. Does have one month of left frontal headache. no change in vision. no chest pain. no fever. Allergies/Adverse Reactions: Allergies NO KNOWN ALLERGY Allergy (Verified 04/29/18 14:33) Home Medications: Ambulatory Orders Clonidine [Clonidine HCl] 0.1 mg TD DAILY #30 tablet 12/18/17 Escitalopram Oxalate [Lexapro] 20 mg PO DAILY 12/18/17 Folate-Vitamin [id number]-[id number] F [Intrinsi B12/Folate 800-500-20 Mcg-Mcg-mg] 1 tab PO DAILY #30 tab 12/18/17 Thiamine HCl [Thiamine] 100 mg PO DAILY #30 cap 12/18/17 Doxycycline (Monohydrate) [Doxycycline Monohydrate] 100 mg PO BID #20 cap 04/29/18 Review of Systems - Review of Systems Constitutional: Denies: diaphoresis, fever, malaise EENTM: States: blurred vision. Denies: eye pain, double vision, ear discharge Respiratory: Denies: cough, orthopnea, short of breath, stridor Cardiology: Denies: chest pain, edema, palpitations, syncope Gastrointestinal/Abdominal: Denies: abdominal pain, constipation, diarrhea, nausea Genitourinary: Denies: discharge, dysuria, frequency, hematuria Musculoskeletal: Denies: back pain, joint swelling, muscle stiffness Skin: Denies: change in color, rash Neurological: States: headache, numbness. Denies: paresthesia, seizure, tremo rs, weakness Endocrine: Denies: intolerance to cold, intolerance to heat, unexplained weight gain, unexplained weight loss Hematologic/Lymphatic: Denies: anemia, blood clots, easy bleeding Past Medical History (General) - Patient Medical History Hx Seizures: No Hx Stroke: No Hx Dementia: No Hx Asthma: No Hx of COPD: No Hx Cardiac Disorders: No Hx Congestive Heart Failure: No Hx Pacemaker: No Hx Hypertension: Yes Hx Thyroid Disease: No Hx Diabetes: No Hx Gastroesophageal Reflux: No Hx Renal Disease: No Hx Cancer: No Hx of HIV: No Hx Hepatitis C: No Hx MRSA: No - Vaccination History Hx Tetanus, Diphtheria Vaccination: No Hx Influenza Vaccination: No Hx Pneumococcal Vaccination: No - Social History Hx Tobacco Use: Yes Hx Alcohol Use: Yes Hx Substance Use: Yes Hx Substance Use Treatment: Yes Hx Depression: No Hx Physical Abuse: No Hx Emotional Abuse: No Hx Suspected Abuse: No - Female History Patient : No Family Medical History - Family History Mother Living Status: Still Living Hx Cardiac Disease: Yes Hx Family Cancer: Yes - mesothelioma-dad Physical Exam - Physical Exam General Appearance: Alert, Comfortable, No apparent distress, Well Developed, Well Hydrated, Well Nourished Eye Exam: bilateral normal ENT Exam: normal ENT inspection, hearing grossly normal Neck: non-tender, full range of motion, supple, normal inspection, trachea midline Respiratory: chest non-tender, lungs clear, normal breath sounds, no respiratory distress, no accessory muscle use Cardiovascular/Chest: normal peripheral pulses, regular rate, rhythm, no edema, no gallop, no JVD, no murmur Peripheral Pulses: radial,right: 2+, radial,left: 2+, dorsalis pedis,right: 2+, dorsalis pedis,left: 2+ Gastrointestinal/Abdominal: normal bowel sounds, non tender, soft, no org anomegaly, no pulsatile mass Back Exam: normal inspection, no CVA tenderness, no vertebral tenderness Extremities Exam: non-tender, normal range of motion, no evidence of injury, no edema Mental Status: alert, oriented x 3 emt b Exam: normal hearing, abnormal eye position, abnormal pupil position, abn ormal speech, other Coordination/Gait: normal finger to nose, normal gait, negative Romberg's sign Motor/Sensory: no motor deficit, no pronator drift, negative Babinski's sign, other - complains of decrease sensation on right upper extremity Skin Exam: normal color, warm/dry Comments: Mental status: A/Ox3 CN II-XII tested and intact. Sensation intact to sharp/dull differentiation in all extremities except, decrease sensation of dull in Right upper extremity. Motor: Normal tone and bulk. No abnormal movements appreciated. No pronator drift. Strength tested and 5/5 in bilateral wrist flexion/extension, elbow flexion/extension, shoulder abduction, straight leg raise, knee flexion/e xtension, ankle dorsiflexion/plantarflexion. Patient ambulates with a steady gait. Coordination: Finger to nose and heel to velasquez testing intact bilaterally. Reflexes: Brachioradialis, biceps, and patellar reflexes WNL and symmetric bilaterally. Babinski with downgoing toes bilaterally.Speech does appear slurred, but comprehensible Progress - Progress Progress: 06/24/201944 stat CT head. Blood work, EKG. CT head shows 1. No intracranial hemorrhage. 2. Lacunar infarcts in the right frontal white matter and right guaman radiata, age undetermined but the findings are new compared with April 29, 2018. MRI follow-up suggested if clinically warranted. 3. Small cortical infarct in the posterior right frontal lobe, appears old/chronic. patient given 324 aspirin and 300 mg plavix. EKG shows NSR HR 96, no evidence of acute ischemia. Symptoms improving. NIHH from 2 now 1 - slurred speech improved. Will give IVF NS bolus for BENJAMIN/Dehydration. Given 1 gram ceftriaxone for UTI. Discussed with neurology who does not recommend tPA at this time. Will transfer to [facility] to [facility]. 06/24/20 21:20 The data reviewed when caring for this patient included: nurse notes etc. The history and assessments from nurses notes were reviewed and considered, and the patient's home medication list was also reviewed and considered. My assessment and the results of testing completed here in the ED were discussed with the patient/family. All questions were answered, and they express understanding of my assessment and the plan. patient was transferred in stable condition - Results/Orders Results/Orders: 06/24/20 20:00 EKG STAT 06/24/20 20:12 URINE CULTURE W/COLONY COUNT Stat 06/24/20 20:36 CTA Head [CT] Stat CTA Neck [CT] Stat 06/24/20 20:45 Sodium Chloride 0.9% 1000ML [Ns 1000 ml] 1,000 ml IVS STAT 06/24/20 21:16 cefTRIAXone SODIUM [Rocephin] 1 gm Sodium Chl 0.9% 50Ml Min-Bag+ [NS 50ml MINI-BAG+] 50 ml IVPB ONCE Laboratory Results WBC 11.8 K/mm3 (4.8-10.8) H 06/24/20 19:55 RBC 4.59 M/mm3 (4.20-5.40) 06/24/20 19:55 Hgb 14.3 gm/dL (12.0-16.0) 06/24/20 19:55 Hct 42.7 % (36.0-47.0) 06/24/20 19:55 MCV 93.2 fl (81.0-99.0) 06/24/20 19:55 MCH 31.1 pg (27.0-31.0) H 06/24/20 19:55 MCHC 33.3 g/dL (33.0-37.0) 06/24/20 19:55 RDW 13.3 % (11.5-14.5) 06/24/20 19:55 Plt Count 339 K/mm3 (130-400) 06/24/20 19:55 MPV 7.4 fl (7.40-10.4) 06/24/20 19:55 Absolute Neuts (auto) 4.40 K/uL (1.8-6.8) 06/24/20 19:55 Absolute Lymphs (auto) 5.90 K/uL (1.0-3.4) H 06/24/20 19:55 Absolute Monos (auto) 1.00 K/uL (0.2-0.8) H 06/24/20 19:55 Absolute Eos (auto) 0.20 K/uL (0.0-0.4) 06/24/20 19:55 Absolute Basos (auto) 0.30 K/uL (0.0-0.1) H 06/24/20 19:55 Neutrophils % 37.6 % (42.0-78.0) L 06/24/20 19:55 Lymphocytes % 50.2 % (20.0-50.0) H 06/24/20 19:55 Monocytes % 8.4 % (2.0-9.0) 06/24/20 19:55 Eosinophils % 1.6 % (1.0-5.0) 06/24/20 19:55 Basophils % 2.2 % (0.0-2.0) H 06/24/20 19:55 PT 9.6 SECONDS (9.0-10.9) 06/24/20 19:55 INR < 1.00 (0.9-1.15) 06/24/20 19:55 PTT (SP) 24.5 SECONDS (21.8-31.6) 06/24/20 19:55 Sodium 136 mmol/L (135-145) 06/24/20 19:53 Potassium 4.9 mmol/L (3.6-5.0) 06/24/20 19:53 Chloride 103 mmol/L (101-111) 06/24/20 19:53 Carbon Dioxide 21 mmol/L (21-31) 06/24/20 19:53 Anion Gap 16.9 (12-18) 06/24/20 19:53 BUN 35 mg/dL (7-18) H 06/24/20 19:53 Creatinine 1.76 mg/dL (0.6-1.3) H 06/24/20 19:53 BUN/Creatinine Ratio 19.9 (10-20) 06/24/20 19:53 Random Glucose 112 mg/dL (70-105) H 06/24/20 19:53 Serum Osmolality 280.7 mOsm/L (275-295) 06/24/20 19:53 Calcium 9.4 mg/dL (8.4-10.2) 06/24/20 19:53 Total Bilirubin 0.7 mg/dL (0.2-1.0) 06/24/20 19:53 AST 18 IU/L (10-42) 06/24/20 19:53 ALT 14 IU/L (10-60) 06/24/20 19:53 Alkaline Phosphatase 64 IU/L (42-121) 06/24/20 19:53 Troponin I < 0.02 ng/mL (0.01-0.05) 06/24/20 20:07 Serum Total Protein 7.8 gm/dL (6.4-8.2) 06/24/20 19:53 Albumin 4.7 g/dl (3.2-5.5) 06/24/20 19:53 Globulin 3.1 gm/dL (2.3-3.5) 06/24/20 19:53 Albumin/Globulin Ratio 1.5 (1.1-1.9) 06/24/20 19:53 TSH 1.90 uIU/mL (0.34-5.60) 06/24/20 19:55 Urine Color Yellow (Yellow) 06/24/20 20:12 Urine Appearance Cloudy (Clear) 06/24/20 20:12 Urine pH 5.5 (4.5-7.8) 06/24/20 20:12 Ur Specific [place] 1.025 (1.005-1.030) 06/24/20 20:12 Urine Protein 30 mg/dL 06/24/20 20:12 Urine Glucose (UA) Negative mg/dL (Negative) 06/24/20 20:12 Urine Ketones 15 mg/dL (NEGATIVE) H 06/24/20 20:12 Urine Blood Trace-intact (Negative) H 06/24/20 20:12 Urine Nitrite Positive H 06/24/20 20:12 Urine Bilirubin Small (NEGATIVE) H 06/24/20 20:12 Urine Urobilinogen 0.2 mg/dL (0.2-1.0) 06/24/20 20:12 Ur Leukocyte Esterase Moderate (Negative) H 06/24/20 20:12 Urine RBC 1-3 /hpf 06/24/20 20:12 Urine WBC 20-30 /hpf H 06/24/20 20:12 Ur Epithelial Cells 3-5 /hpf 06/24/20 20:12 Urine Bacteria 3+ H 06/24/20 20:12 Urine Yeast 1+ budding H 06/24/20 20:12 Urine Opiates Screen Negative ng/mL (2000) 06/24/20 20:12 Urine Barbiturates Negative ng/mL (200) 06/24/20 20:12 Ur Phencyclidine Scrn Negative ng/mL (25) 06/24/20 20:12 U Amphetamin/Meth Scrn Positive ng/mL (1000) H 06/24/20 20:12 U Benzodiazepines Scrn Negative ng/mL (200) 06/24/20 20:12 U Cocaine Metab Screen Negative ng/mL (300) 06/24/20 20:12 U Cannabinoids Screen Negative ng/mL (50) 06/24/20 20:12 Stroke Information - Onset of Symptoms Symptoms of Stroke: Aphasia - no aphasia, but does have dysphasia/slurred speech. no weakness, right arm numbness Stroke Onset of Symptoms Date: 06/24/20 Stroke Onset of Symptoms Time: 19:10 Departure - Departure Clinical Impression: Acute kidney injury, Methamphetamine abuse Stroke Qualifiers: CVA mechanism: unspecified Qualified Code(s): I63.9 - Cerebral infarction, unspecified UTI (urinary tract infection) Qualifiers: Urinary tract infection type: urethritis Qualified Code(s): N34.2 - Other urethritis Disposition: Transfer to Hospital Condition: Fair Referrals: Vickie Brooks, COMPUTATIONAL CHEMIST [Primary Care Provider] - 1-2 Weeks Home Medications: Ambulatory Orders Clonidine [Clonidine HCl] 0.1 mg TD DAILY #30 tablet 12/18/17 Escitalopram Oxalate [Lexapro] 20 mg PO DAILY 12/18/17 Folate-Vitamin C19-[id number] F [Intrinsi B12/Folate 800-500-20 Mcg-Mcg-mg] 1 tab PO DAILY #30 tab 12/18/17 Thiamine HCl [Thiamine] 100 mg PO DAILY #30 cap 12/18/17 Doxycycline (Monohydrate) [Doxycycline Monohydrate] 100 mg PO BID #20 cap 04/29/18 Transfer to Outside Facility - Transfer Information Decision to Transfer Date: 06/24/20 Decision to Transfer Time: 21:17 Reason for Transfer: specialized care not available
--- NOTE | 2020-06-24 20:24 | CT ---
EXAM: CT Head Without Intravenous Contrast CLINICAL HISTORY: The patient is 59 years old and is Female; stroke TECHNIQUE: Axial computed tomography images of the head/brain without intravenous contrast. Sagittal and coronal reformatted images were created and reviewed. This CT exam was performed using one or more of the following dose reduction techniques: automated exposure control, adjustment of the mA and/or kV according to patient size, and/or use of iterative reconstruction technique. COMPARISON: CT head April 29, 2018. FINDINGS: Brain: Lacunar infarct in the right frontal white matter and right guaman radiata, age is undetermined but the findings are new compared with April 29, 2018. Small cortical infarct in the posterior right frontal lobe, appears old/chronic. No hemorrhage. Ventricles: Unremarkable. No ventriculomegaly. Bones/joints: Unremarkable. No acute skull fracture. Soft tissues: Unremarkable. Sinuses: Unremarkable as visualized. No acute sinusitis. Mastoid air cells: No significant mastoid fluid. IMPRESSION: 1. No intracranial hemorrhage. 2. Lacunar infarcts in the right frontal white matter and right guaman radiata, age undetermined but the findings are new compared with April 29, 2018. MRI follow-up suggested if clinically warranted. 3. Small cortical infarct in the posterior right frontal lobe, appears old/chronic. Electronically signed by: Leelee Zamudio MD 06/24/2020 8:22 PM CDT
[2020-06-24] MEDS ORDERED: ASPIRIN TABLET 325 MG TAB PO ONE (20:38)
[2020-06-24] MEDS ORDERED: SODIUM CHLORIDE 0.9% 1000ML 1,000 ML IVS PRN (20:45)
[2020-06-24] MEDS ORDERED: CLOPIDOGREL 75 MG TAB PO ONE (21:16)
[2020-06-24] MEDS ORDERED: cefTRIAXone SODIUM 1 GM in SODIUM CHL 0.9% 50ML MIN-BAG+ 50 ML IVPB ONE (21:16)
[2020-06-24 21:41] VITALS: TEMP 96.6
[2020-06-24 21:50] VITALS: O2SAT 96
[2020-06-24 22:28] VITALS: BP 87/65
== END 2020-06-24 22:52 | disposition short-term general hospital (02) ==
LOC: ER 19:49
DX: I63.9 Cerebral infarction, unspecified (principal); R13.10 Dysphagia, unspecified; N17.9 Acute kidney failure, unspecified; N34.2 Other urethritis; F15.10 Other stimulant abuse, uncomplicated; H53.8 Other visual disturbances; I10 Essential (primary) hypertension; F17.200 Nicotine dependence, unspecified, uncomplicated; Z79.899 Other long term (current) drug therapy
CPT/HCPCS: 36415; 70450; 80053; 80307; 81001; 84443; 84484; 85025; 85610; 85730; 87086; 87186; 93005; J0696; J7030; J7050

== ENCOUNTER → 2020-12-31 | Outpatient (CLI) | payer SELFPAY ==
--- NOTE | 2020-12-31 13:06 | RAD ---
EXAM DESCRIPTION: Right ring finger, 3 radiographs CLINICAL HISTORY: CRUSHING INJURY OF FINGER FINDINGS/ IMPRESSION: Highly comminuted fracture of the distal phalanx of the ring finger. Maximum cortical separation approximately 4 mm. No radiopaque foreign body. Marked soft tissue swelling. Evidence of a single fracture plane extending into the volar ulnar side of the DIP joint. No separation of the subchondral cortex at the distal interphalangeal joint Electronically signed by: Soren Brumfield MD 12/31/2020 1:04 PM [facility]
== END ==
LOC: YCFC.O 12:21
PROVIDERS: ATTEND Nurse Practitioner Family
DX: S62.664A Nondisplaced fracture of distal phalanx of right ring finger, initial encounter for closed fracture (principal); S63.434A Traumatic rupture of volar plate of right ring finger at metacarpophalangeal and interphalangeal joint, initial encounter